=== PATIENT | male | born 1995 | race Caucasian/White ===

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

== ENCOUNTER 2017-01-04 20:22 | Emergency (ER) | payer MEDICAID | END 2017-01-04 21:10 | disposition home or self-care (01) | LOC: D.ER 20:22 | DX: R21 Rash and other nonspecific skin eruption (principal) ==

== ENCOUNTER → 2017-06-01 17:19 | Emergency (ER) | payer MEDICAID | END | disposition home or self-care (01) | LOC: D.ER 17:19 | DX: Z02.9 Encounter for administrative examinations, unspecified (principal) ==

== ENCOUNTER 2017-06-04 21:10 | Emergency (ER) | payer MEDICAID | END 2017-06-04 22:08 | disposition home or self-care (01) | LOC: D.ER 21:10 | DX: S69.91XA Unspecified injury of right wrist, hand and finger(s), initial encounter (principal); W22.8XXA Striking against or struck by other objects, initial encounter; Y93.89 Activity, other specified; Y92.89 Other specified places as the place of occurrence of the external cause; M79.641 Pain in right hand; F17.200 Nicotine dependence, unspecified, uncomplicated ==

== ENCOUNTER 2017-08-23 01:11 | Emergency (ER) | payer MEDICAID | END 2017-08-23 03:20 | disposition left against medical advice (07) | LOC: D.ER 01:11 | DX: T76.21XA Adult sexual abuse, suspected, initial encounter (principal); S20.412A Abrasion of left back wall of thorax, initial encounter; X58.XXXA Exposure to other specified factors, initial encounter; Y93.89 Activity, other specified; Y92.89 Other specified places as the place of occurrence of the external cause; F15.90 Other stimulant use, unspecified, uncomplicated; F17.200 Nicotine dependence, unspecified, uncomplicated ==

== ENCOUNTER 2017-08-23 03:59 | Emergency (ER) | payer MEDICAID | END 2017-08-23 05:47 | disposition home or self-care (01) | LOC: D.ER 03:59 | DX: T76.21XA Adult sexual abuse, suspected, initial encounter (principal) ==

== ENCOUNTER 2017-12-13 02:55 | Emergency (ER) | payer MEDICAID | END 2017-12-13 03:39 | disposition home or self-care (01) | LOC: D.ER 02:55 | DX: L25.9 Unspecified contact dermatitis, unspecified cause (principal) ==

== ENCOUNTER 2018-01-02 13:11 | Emergency (ER) | payer MEDICAID ==
[~2018-01-02] VITALS: Ht 182.9 cm; Wt 88.6 kg
[2018-01-02 13:17] VITALS: Ht 182.9 cm; Wt 88.6 kg
[2018-01-02 15:01] LABS: BASOPHILS 0.2 % (0-2); EOSINOPHILS 0.2 % (0-7); HEMATOCRIT 46.6 % (42.0-54.0); HEMOGLOBIN 16.2 g/dL (13.5-17.5); IMMATURE GRANULOCYTES 0.5 % (0-5); LYMPHOCYTES 6.4 % (15-50); MCH 31.3 pg (26.0-34.0); MCHC 34.8 g/dL (31.0-37.0); MEAN PLATELET VOLUME 9.6 fL (7.4-10.4); MONOCYTES 8.1 % (2-11); NEUTROPHILS 84.6 % (40-80); RBC 5.18 10x6/uL (4.20-6.10); RDW 12.6 % (11.5-14.5); WBC 19.9 10x3/uL (4.8-10.8)
[2018-01-02 15:10] LABS: BILIRUBIN - TOTAL 0.87 mg/dL (0.2-1.3); CALCIUM 10.6 mg/dL (8.5-10.1); CARBON DIOXIDE 26.1 mmol/L (21.0-32.0); CREATININE - SERUM 2.2 mg/dL (0.6-1.3); POTASSIUM - SERUM 4.1 mmol/L (3.5-5.1); PROTEIN - SERUM 9.2 g/dL (6.4-8.2)
[2018-01-02 15:44] LABS: PLATELET COUNT 258 10x3/uL (130-400)
[2018-01-02 16:32] VITALS: BP 149/87
== END 2018-01-02 16:29 | disposition home or self-care (01) ==
LOC: D.ER 13:11
PROVIDERS: Family Medicine
DX: R86.0 Abnormal level of enzymes in specimens from male genital organs (principal); T67.8XXA Other effects of heat and light, initial encounter; X58.XXXA Exposure to other specified factors, initial encounter; Y93.89 Activity, other specified; Y92.89 Other specified places as the place of occurrence of the external cause; R79.89 Other specified abnormal findings of blood chemistry; F17.200 Nicotine dependence, unspecified, uncomplicated; R51 Headache

== ENCOUNTER 2018-11-15 09:41 | Emergency (ER) | payer SELFPAY ==
[~2018-11-15] VITALS: Ht 182.9 cm; Wt 80.0 kg
[2018-11-15 09:44] VITALS: Ht 182.9 cm; Wt 80.0 kg
[2018-11-15] MEDS ORDERED: MEDROL DOSE PACK4 MG PO (10:01)
[2018-11-15] MEDS ORDERED: VISTARIL50 MG PO (10:01)
[2018-11-15 10:09] VITALS: BP 138/78
== END 2018-11-15 10:10 | disposition home or self-care (01) ==
LOC: D.ER 09:41
DX: L23.7 Allergic contact dermatitis due to plants, except food (principal)

== ENCOUNTER 2018-12-12 13:51 | Emergency (ER) | payer SELFPAY ==
[~2018-12-12] VITALS: Ht 182.9 cm; Wt 72.7 kg
[~2018-12-12 13:51] MED LIST: MEDROL DOSE PACK4 MG PO; VISTARIL50 MG PO
[2018-12-12 13:54] VITALS: Ht 182.9 cm; Wt 72.7 kg
[2018-12-12] MEDS ORDERED: PREDNISONE50 MG PO (15:46)
[2018-12-12 16:15] VITALS: BP 126/61
== END 2018-12-12 16:15 | disposition home or self-care (01) ==
LOC: D.ER 13:51
DX: L24.7 Irritant contact dermatitis due to plants, except food (principal)

== ENCOUNTER 2019-05-05 13:45 | Emergency (ER) | payer MEDICAID ==
[~2019-05-05] VITALS: Ht 182.9 cm; Wt 81.8 kg
[~2019-05-05 13:45] MED LIST changes: +PREDNISONE50 MG PO
[2019-05-05 13:48] VITALS: Ht 182.9 cm; Wt 81.8 kg
[2019-05-05 14:16] LABS: UDS - AMPHET POSITIVE QUAL (NEGATIVE); UDS - BARB NEGATIVE QUAL (NEGATIVE); UDS - BENZO NEGATIVE QUAL (NEGATIVE); UDS - COCAINE NEGATIVE QUAL (NEGATIVE); UDS - OPIATE NEGATIVE QUAL (NEGATIVE); UDS - PCP NEGATIVE QUAL (NEGATIVE); UDS - THC POSITIVE QUAL (NEGATIVE)
[2019-05-05 14:29] LABS: HEMATOCRIT 46.3 % (42.0-54.0); HEMOGLOBIN 15.7 g/dL (13.5-17.5); MCH 30.8 pg (26.0-34.0); MCHC 33.9 g/dL (31.0-37.0); MCV 90.8 fL (80.0-100.0); MEAN PLATELET VOLUME 9.4 fL (7.4-10.4); RDW 13.1 % (11.5-14.5)
[2019-05-05 14:29] LABS: APPEARANCE CLEAR (CLEAR); COLOR YELLOW (YELLOW); NITRITE NEGATIVE (NEGATIVE); PROTEIN NEGATIVE (NEGATIVE); SPECIFIC GRAVITY 1.005 (1.005-1.020)
[2019-05-05 14:30] LABS: BILIRUBIN NEGATIVE (NEGATIVE); GLUCOSE 250 mg/dL (NEGATIVE); KETONE NEGATIVE (NEGATIVE); UROBILINOGEN NORMAL (NORMAL)
[2019-05-05 14:37] LABS: ALBUMIN 5.3 g/dL (3.4-5.0); ALKALINE PHOSPHATASE 96 U/L (46-116); ALT (SGPT) 44 U/L (10-68); CALC OSMOLALITY 287 mosm/kg (275-300); CARBON DIOXIDE 28.2 mmol/L (21.0-32.0); CHLORIDE - SERUM 99 mmol/L (98-107); CREATININE - SERUM 1.2 mg/dL (0.6-1.3); GLUCOSE 121 mg/dL (74-106); PLATELET COUNT 326 10x3/uL (130-400); POTASSIUM - SERUM 3.6 mmol/L (3.5-5.1); PROTEIN - SERUM 9.4 g/dL (6.4-8.2); SODIUM 142 mmol/L (136-145); UREA NITROGEN 24 mg/dL (7-18); eGFR NON AFRICAN AMERICAN 80 mL/min (90-120)
--- NOTE | 2019-05-05 15:45 | NUR ---
DR ANDERSON NOTIFIED AND SITTER ORDERED, SITTER AT BEDSIDE. NOTIFIED CHARGE NURSE AND ATTENDING IN REGARDS TO ASSESSMENT FINDINGS. RESOURCES GIVEN TO PT AND SAFETY PLAN INITIATED.
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
[2019-05-05 16:54] LABS: EOSINOPHILS 4 % (0-7); LYMPHOCYTES 19 % (15-50); NEUTROPHILS 77 % (40-80); PLATELET ESTIMATE NORMAL
--- NOTE | 2019-05-05 17:15 | NUR ---
POLICE ARRIVED TO UNIT WITH PATIENT IN CUSTODY. PATIENT ANGRY, CURSING, ARGUMENTATIVE, INSISTING THAT HE DOES NOT NEED PLACEMENT.
--- NOTE | 2019-05-05 17:16 | NUR ---
RENAN NICOLE SERVED TO PATIENT.
[2019-05-05 18:51] VITALS: BP 132/64
== END 2019-05-06 01:17 ==
LOC: D.ER 13:45
PROVIDERS: Emergency Medicine
DX: R45.851 Suicidal ideations (principal); F15.10 Other stimulant abuse, uncomplicated; F17.210 Nicotine dependence, cigarettes, uncomplicated

== ENCOUNTER 2019-08-12 02:58 | Emergency (ER) | payer MEDICAID ==
[~2019-08-12] VITALS: Ht 182.9 cm; Wt 81.8 kg
[2019-08-12 03:02] VITALS: Ht 182.9 cm; Wt 81.8 kg
[2019-08-12 03:37] LABS: BASOPHILS 0.4 % (0-2); EOSINOPHILS 3.9 % (0-7); HEMOGLOBIN 14.8 g/dL (13.5-17.5); IMMATURE GRANULOCYTES 0.4 % (0-5); LYMPHOCYTES 20.9 % (15-50); MCH 30.8 pg (26.0-34.0); MCHC 34.4 g/dL (31.0-37.0); MCV 89.4 fL (80.0-100.0); MEAN PLATELET VOLUME 9.1 fL (7.4-10.4); MONOCYTES 7.5 % (2-11); NEUTROPHILS 66.9 % (40-80); PLATELET COUNT 316 10x3/uL (130-400); RBC 4.81 10x6/uL (4.20-6.10); RDW 12.6 % (11.5-14.5); WBC 9.3 10x3/uL (4.8-10.8)
[2019-08-12 03:45] LABS: COLOR STRAW (YELLOW)
[2019-08-12 03:46] LABS: APPEARANCE CLEAR (CLEAR); BILIRUBIN NEGATIVE (NEGATIVE); GLUCOSE NEGATIVE (NEGATIVE); KETONE NEGATIVE (NEGATIVE); NITRITE NEGATIVE (NEGATIVE); PROTEIN 1+ mg/dL (NEGATIVE); SPECIFIC GRAVITY 1.005 (1.005-1.020); UROBILINOGEN NORMAL (NORMAL)
[2019-08-12 03:50] LABS: UDS - AMPHET NEGATIVE QUAL (NEGATIVE); UDS - BARB NEGATIVE QUAL (NEGATIVE); UDS - BENZO NEGATIVE QUAL (NEGATIVE); UDS - COCAINE NEGATIVE QUAL (NEGATIVE); UDS - OPIATE NEGATIVE QUAL (NEGATIVE); UDS - PCP NEGATIVE QUAL (NEGATIVE); UDS - THC NEGATIVE QUAL (NEGATIVE)
[2019-08-12 04:10] LABS: CALC OSMOLALITY 276 mosm/kg (275-300); CALCIUM 9.4 mg/dL (8.5-10.1); CARBON DIOXIDE 29.6 mmol/L (21.0-32.0); CHLORIDE - SERUM 101 mmol/L (98-107); CREATININE - SERUM 1.1 mg/dL (0.6-1.3); GLUCOSE 99 mg/dL (74-106); POTASSIUM - SERUM 3.8 mmol/L (3.5-5.1); SODIUM 140 mmol/L (136-145); UREA NITROGEN 7 mg/dL (7-18); eGFR NON AFRICAN AMERICAN 89 mL/min (90-120)
[2019-08-12 04:14] LABS: ALBUMIN 4.2 g/dL (3.4-5.0); ALKALINE PHOSPHATASE 103 U/L (46-116); ALT (SGPT) 30 U/L (10-68); BILIRUBIN - TOTAL 0.35 mg/dL (0.2-1.3); MAGNESIUM - SERUM 1.9 mg/dL (1.8-2.4); PROTEIN - SERUM 8.2 g/dL (6.4-8.2)
[2019-08-12 04:35] VITALS: BP 143/55
[2019-08-12] MEDS ORDERED: AUGMENTIN 875-11 TAB PO (06:33)
--- NOTE | 2019-08-12 11:50 | NUR ---
DR. ANDERSON NOTIFIED AND SITTER ORDERED SITTER AT BEDSIDE. NOTIFIED CHARGE NURSE AND ATTENDING IN REGARDS TO ASSESSMENT FINDINGS. RESOURCES GIVEN TO PATIENT AND SAFETY PLAN INITIATED.
== END 2019-08-12 13:48 ==
LOC: D.ER 02:58
PROVIDERS: Family Medicine
DX: R45.851 Suicidal ideations (principal); F10.129 Alcohol abuse with intoxication, unspecified; Y90.7 Blood alcohol level of 200-239 mg/100 ml; F32.9 Major depressive disorder, single episode, unspecified; S41.152A Open bite of left upper arm, initial encounter; S41.151A Open bite of right upper arm, initial encounter; W54.0XXA Bitten by dog, initial encounter; Y93.9 Activity, unspecified; Y92.9 Unspecified place or not applicable

== ENCOUNTER 2020-03-13 18:53 | Emergency (ER) | payer MEDICAID ==
[~2020-03-13] VITALS: Ht 182.9 cm; Wt 77.1 kg
[~2020-03-13 18:53] MED LIST changes: +AUGMENTIN 875-11 TAB PO
[2020-03-13 19:06] VITALS: Ht 182.9 cm; Wt 77.1 kg
--- NOTE | 2020-03-13 20:23 | NUR ---
DR ANDERSON NOTIFIED OF PT's BEHAVIOR AND ASSESSMENT RESULTS. PT IS A LOW RISK PER DR ANDERSON. DR ANDERSON STATED TO GIVE RESOURCES TO PT AT TIME OF DISCHARGE. NO FURTHER ORDERS AT THIS TIME. RESOURCES REVIEWED WITH PT AND HE VERBALIZED UNDERSTANDING.
[2020-03-13] MEDS ORDERED: VOLTAREN75 MG PO (20:45)
[2020-03-13 21:13] VITALS: BP 145/78
== END 2020-03-13 21:13 | disposition home or self-care (01) ==
LOC: D.ER 18:53
DX: S99.911A Unspecified injury of right ankle, initial encounter (principal); X50.1XXA Overexertion from prolonged static or awkward postures, initial encounter; Y93.39 Activity, other involving climbing, rappelling and jumping off; Y92.838 Other recreation area as the place of occurrence of the external cause; S93.401A Sprain of unspecified ligament of right ankle, initial encounter; M25.571 Pain in right ankle and joints of right foot

== ENCOUNTER 2020-03-20 16:20 | Emergency (ER) | payer MEDICAID ==
[~2020-03-20] VITALS: Ht 182.9 cm; Wt 72.7 kg
[~2020-03-20 16:20] MED LIST changes: +VOLTAREN75 MG PO
[2020-03-20 16:29] VITALS: BP 152/94; Ht 182.9 cm; Wt 72.7 kg
[2020-03-20] MEDS ORDERED: ULTRAM50 MG PO (17:04)
== END 2020-03-20 17:21 | disposition home or self-care (01) ==
LOC: D.ER 16:20
DX: S93.401A Sprain of unspecified ligament of right ankle, initial encounter (principal); X58.XXXA Exposure to other specified factors, initial encounter

== ENCOUNTER 2021-01-25 11:36 | Emergency (ER) | payer BC ==
[~2021-01-25] VITALS: Ht 182.9 cm; Wt 86.4 kg
[~2021-01-25 11:36] MED LIST changes: +ULTRAM50 MG PO
[2021-01-25 11:54] VITALS: BP 130/81; Ht 182.9 cm; Wt 86.4 kg
[2021-01-25] MEDS ORDERED: MEDROL DOSE PACK4 MG PO (12:06)
== END 2021-01-25 12:22 | disposition home or self-care (01) ==
LOC: D.ER 11:36
DX: L25.5 Unspecified contact dermatitis due to plants, except food (principal)